=== PATIENT | male | born 1950 | race Caucasian/White ===

== ENCOUNTER 2016-08-04 18:35 | Emergency (ER) | payer OTHER ==
[~2016-08-04] VITALS: Ht 177.8 cm; Wt 93.5 kg
[2016-08-04 19:31] LABS: CHLORIDE 106 mEq/L (99-109); POTASSIUM 4.1 mEq/L (3.7-5.4); SODIUM 141 mEq/L (136-147)
[2016-08-04 19:33] LABS: GLUCOSE 164 mg/dL (70-99)
[2016-08-04 19:34] LABS: ANION GAP 10 MEQ/L (2-14)
[2016-08-04 19:37] LABS: UREA NITROGEN (BUN) 18 mg/dL (9-23)
[2016-08-04 19:38] LABS: GFR ESTIMATE (CALCULATED) > 59 mL/min/
[2016-08-04 19:39] LABS: TROP-I INTERPRETATION NEGATIVE; TROPONIN-I < 0.01 ng/mL (0.0-0.30)
[2016-08-04 20:32] VITALS: BP 113/71
== END 2016-08-04 20:33 | disposition home or self-care (01) ==
LOC: EME 18:35
PROVIDERS: Physician Assistant
DX: S20.219A Contusion of unspecified front wall of thorax, initial encounter (principal); E11.9 Type 2 diabetes mellitus without complications; E78.5 Hyperlipidemia, unspecified; F17.200 Nicotine dependence, unspecified, uncomplicated; V49.40XA Driver injured in collision with unspecified motor vehicles in traffic accident, initial encounter; Z95.1 Presence of aortocoronary bypass graft
CPT/HCPCS: 71020; 80048; 84484; 93005; 99281; 99284